=== PATIENT | male | born 1945 | race Caucasian/White ===

== ENCOUNTER 2021-03-11 15:49 | Emergency (ER) | payer MEDICARE, SELFPAY ==
[2021-03-11 16:06] VITALS: BP 160/53; PULSE 59; RESP 16; TEMP 36.4; O2SAT 99
--- NOTE | 2021-03-11 16:40 | ED.URI ---
HPI - URI/Sore Throat General Chief Complaint: Upper Respiratory Infection Stated Complaint: Sore Throat Time Seen by Provider: 03/11/21 16:40 Source: patient Mode of arrival: ambulatory Limitations: no limitations History of Present Illness HPI Narrative: Rahat Shore is a 76 yo male - has had covid and vaccine - has a sore throat for 3 weeks -has daughter who is on dialysis and hospitalized long-term from Covid is concerned that his sore throat could be contagious. Here for a strep test; has elevated BP and is aware- does not want to take meds Related Data Allergies Allergy/AdvReac Type Severity Reaction Status Date / Time No Known Allergies Allergy Mild Unverified 09/04/08 14:15 NA Allergy Unknown Uncoded 11/22/08 11:46 Review of Systems Review of Systems: CONSTITUTIONAL: Denies fever, chills, sweats. EYES: Denies visual changes, redness, discharge. ENT: Denies rhinorrhea, has congestion, has sore throat, otalgia. CARDIOVASCULAR: Denies chest pain, palpitations, edema. RESPIRATORY: Denies dyspnea, wheezing, cough GASTROINTESTINAL: Denies abdominal pain, nausea, vomiting, diarrhea. GENITOURINARY: Denies dysuria, hematuria, abnormal discharge SKIN: Denies rash or itching. NEUROLOGIC: Denies numbness, or focal weakness. PSYCHIATRIC: Denies anxiety or depression. PMFSH Past Medical History Medical History (Updated 03/11/21 @ 17:02 by Mayra Posadas CNP) High cholesterol HTN (hypertension) Surgical History Surgical History (Updated 03/11/21 @ 16:59 by Mayra Posadas CNP) S/P triple vessel bypass Family History Family History Other Heart disease Hypertension Social History Social History (Updated 03/11/21 @ 16:59 by Mayra Posadas CNP) Smoking status: Never smoker Alcohol intake: never Comments At time of signature, I agree with nursing past medical, surgical, social and family history. There is no relevant family history pertinent to the presenting complaint. Exam Narrative: GENERAL: This is a well-nourished, well-developed patient, in mild distress. HEAD: normocephalic, atraumatic. EYES: Sclera clear/white. Vision is grossly intact. EARS: External ears normal, auditory canals clear and without drainage, TMs normal without perforation. Hearing grossly intact. NOSE: External nose normal without nasal discharge, nares without redness, no rhinorrhea. THROAT: Mucous membranes moist, posterior pharynx mild erythema-complaining of sour/acid taste in mouth NECK: Neck supple, non-tender CARDIOVASCULAR: Regular rate and rhythm without murmurs, gallops, or rubs. RESPIRATORY: Clear to auscultation. Breath sounds equal bilaterally. No wheezes, rales, or rhonchi. GASTROINTESTINAL: Abdomen soft, SKIN: warm, intact with no suspicious lesions or rash, good texture and turgor. NEURO: awake, alert, and oriented to person, place and time. There were no obvious focal neurologic abnormalities. Steady gait EXTREMITIES: Normal range of motion. BACK: Nontender without deformity Course Course Emergency Course: [facility] because of a sore throat concern about infectivity because daughter has long-term Covid Strep test negative Amoxicillin 875 twice daily x7 days-discussed the symptoms may be in fact related to his GERD even though he takes Protonix and recommended he also try supple call lozenges Vital Signs Vital signs: Vital Signs Temperature 97.6 F 03/11/21 16:06 Pulse Rate 59 L 03/11/21 16:06 Respiratory Rate 16 03/11/21 16:06 Blood Pressure 160/53 H 03/11/21 16:06 Pulse Oximetry 99 03/11/21 16:06 Temperature 97.6 F 03/11/21 16:06 Pulse Rate 59 L 03/11/21 16:06 Respiratory Rate 16 03/11/21 16:06 Blood Pressure 160/53 H 03/11/21 16:06 Pulse Oximetry 99 03/11/21 16:06 MDM - URI/Sore Throat Differential Diagnosis Differential diagnosis: Likely upper respiratory infection, otitis media,
== END 2021-03-11 17:09 | disposition home or self-care (01) ==
PROVIDERS: Emergency Provider Nurse Practitioner
DX: J02.9 Acute pharyngitis, unspecified (principal); E78.00 Pure hypercholesterolemia, unspecified; I10 Essential (primary) hypertension
CPT/HCPCS: 87081; 87880; 99213; G0463

== ENCOUNTER 2022-12-15 10:51 | Emergency (ER) | payer MEDICARE, SELFPAY ==
[2022-12-15 11:00] VITALS: BP 170/64; PULSE 58; RESP 20; TEMP 36.6; O2SAT 100
--- NOTE | 2022-12-15 11:16 | ED.GENADULT ---
HPI - General Adult General Chief complaint: Abdominal Pain Stated complaint: Hiaital Hernia Time Seen by Provider: 12/15/22 11:16 Source: patient, RN notes reviewed and old records reviewed Mode of arrival: ambulatory Limitations: no limitations History of Present Illness HPI narrative: [age] year male presents to the [facility] with complaints of ?I am having hiatal hernia attack. ? States that he ate a lot ?bad food last night.? patient states that he has epigastric and right upper quadrant pain. Has been having nausea and dry heaving. Denies any fevers. States he has been taking his acid reflux medication every day as prescribed. Has a history of hiatal hernia issues. States that he normally gets something to drink and a pain shot. Presents to the [facility] with his son Explained to patient that we do not have pain shots here. Patient's son became upset grabbed his father and walked out the door. Complaining about poor service, that we did not tell them we do not have pain medication here and cussing. Onset (ago): day(s) (1) Related Data Home Medications Medication Instructions Recorded Confirmed atorvastatin 40 mg tablet 40 mg PO DAILY 12/15/22 12/15/22 diphth,pertus(acell),tetanus 2.5 1 syr IM DIRECTED 12/15/22 12/15/22 Lf unit-8 mcg-5 Lf/0.5mL IM syringe (Boostrix Tdap) methimazole 5 mg tablet 5 mg PO DIRECTED 12/15/22 12/15/22 metoprolol succinate 50 mg 50 mg PO DAILY 12/15/22 12/15/22 tablet,extended release 24 hr olmesartan 20 1 tablet PO DAILY 12/15/22 12/15/22 mg-hydrochlorothiazide 12.5 mg tablet pantoprazole 40 mg tablet,delayed 40 mg PO DAILY 12/15/22 12/15/22 release tamsulosin 0.4 mg capsule 0.4 mg PO DAILY 12/15/22 12/15/22 Allergies Allergy/AdvReac Type Severity Reaction Status Date / Time No Known Allergies Allergy Mild Verified 12/15/22 11:09 Review of Systems Review of Systems: All systems reviewed & are unremarkable except as noted in HPI and below Constitutional: Constitutional: Reports no additional constitutional complaints Eyes: Eyes: Reports no additional eye complaints ENT: Reports system reviewed and no additional complaints, except as documented Cardiovascular: Cardiovascular: Reports no additional cardiovascular complaints, Denies chest pain and Denies dyspnea Respiratory: Respiratory: Reports no additional respiratory complaints, Denies chest congestion, Denies cough and Denies dyspnea Gastrointestinal: Gastrointestinal: Reports as per HPI, Reports abdominal pain, Reports belching, Reports nausea and Denies vomiting Musculoskeletal: Musculoskeletal: Reports no additional musculoskeletal complaints Integumentary/Breasts: Skin/Breast: Reports system reviewed and no additional complaints, except as docu Neurologic: Reports system reviewed and no additional complaints, except as documented Psychiatric: Psychiatric: Reports no additional psychiatric complaints Allergic/Immunologic: Allergic/Immunologic: Reports no additional allergic/immunologic complaints PMFSH Past Medical History Medical History High cholesterol HTN (hypertension) Surgical History Surgical History S/P triple vessel bypass Family History Family History Other Heart disease Hypertension Social History Social History Smoking status: Never smoker Alcohol intake: never Comments At the time of my signature, I reviewed and agree with the nursing past medical, surgical, social, and family history. There is no relevant family history pertinent to the patient complaint. Exam Const: General: cooperative, healthy appearing, comfortable, no acute distress, well developed, alert and well nourished Nutritional Appearance: well nourished Orientation
== END 2022-12-15 11:22 | disposition left against medical advice (07) ==
PROVIDERS: Emergency Provider Nurse Practitioner
DX: R11.2 Nausea with vomiting, unspecified (principal); R10.13 Epigastric pain; E78.00 Pure hypercholesterolemia, unspecified; I10 Essential (primary) hypertension
CPT/HCPCS: 99211; G0463

== ENCOUNTER 2023-02-19 07:45 | Outpatient (CLI) | payer MEDICARE, SELFPAY ==
--- NOTE | ~2023-02-19 | US_ITS ---
EXAMINATION: US abdomen limited DATE: 02/19/2023 08:27 INDICATION: Epigastric pain TECHNIQUE: Multiple grayscale and Doppler ultrasound images of the abdomen were obtained. COMPARISON: None available FINDINGS: Bowel gas obscures visualization of the pancreas. The visualized portions of the pancreas a re unremarkable. The liver is normal with normal echogenicity and echotexture. No surface nodularity. Normal hepatopetal flow in the main portal vein. Stones and sludge are present in the gallbladder. T he thickened gallbladder wall measures up to 5 mm. No pericholecystic fluid is identified. The normal common bile duct measures 5 mm. There was no sonographic Pratt sign. IMPRESSION: 1. Stones, sludge, and wall thickening of the gallbladder which could reflect acute or chronic cholec ystitis. Consider nuclear hepatobiliary scan. Reviewed, dictated and finalized at location L. IMPRESSION: 1. Stones, sludge, and wall thickening of the gallbladder which could reflect a cute or chronic cholecystitis. Consider nuclear hepatobiliary scan.
== END 2023-02-19 07:46 | disposition home or self-care (01) ==
DX: R10.13 Epigastric pain (principal)
CPT/HCPCS: 76705